=== PATIENT | male | born 1985 | race Caucasian/White ===

== ENCOUNTER 2016-03-28 13:35 | Emergency (ER) ==
[2016-03-28 14:00] VITALS: BP 124/85
== END 2016-03-28 15:38 | disposition left against medical advice (07) ==
LOC: ED 13:35
DX: R11.10 Vomiting, unspecified (principal); R19.7 Diarrhea, unspecified

== ENCOUNTER 2016-03-28 14:57 | Emergency (ER) ==
[2016-03-28 15:07] VITALS: BP 118/79
[2016-03-28] MEDS ORDERED: NS 1,000 ML IV ONE (16:03)
[2016-03-28] MEDS ORDERED: ZOFRAN IV ONE (16:03)
--- NOTE | 2016-03-28 16:05 | PROVIDER DOCUMENTATION ---
HPI-Abdominal Pain/GI Problem - General Source: patient, family - History of Present Illness-ABD Abdominal Pain Onset Location: reports: generalized abdomen Quality of Pain: reports: aching Severity in ED: reports: moderate Onset/Duration: reports: 5 days ago Timing: reports: constant Last BM: this evening Bruising or Bleeding Gums?: No Similar Symptoms Previously?: Yes Recently seen or treated by another doctor?: No <Cooper Geller - Last Filed: 03/28/16 16:44> <Pam Young - Last Filed: 03/28/16 19:25> - General Chief Complaint: N/V/D Stated Complaint: N/V/D Time Seen by Provider: 03/28/16 16:02 Allergies/Adverse Reactions: Patient Allergies Allergy/AdvReac Type Severity Reaction Status Date / Time No Known Allergies Allergy Verified 12/01/15 17:36 Home Medications: Paroxetine HCl [Paxil] 40 mg PO DAILY 03/03/13 - History of Present Illness-ABD Nature of Presenting Problems: Hx of anxiety,panic disorder,depression and ulcerative colitis presents to er with cc of n,v,d x 5 days. Vomiting 15-20 times a day and diarrhea 15-20 times a day. Reports occassional flare ups. Also reports fever and chills. (Cooper Geller) Review of Systems - Adult - REVIEW OF SYSTEMS - ADULT Constitutional: reports: chills, fever. denies: fatique, weight gain, weight loss Eyes: reports: no symptoms reported Ears, Nose, Mouth & Throat: reports: no symptoms reported Cardiovascular: denies: chest pain, irregular heart rate, orthopnea, syncope Respiratory: reports: no symptoms reported Gastrointestinal: reports: abdominal pain, diarrhea, nausea, poor appetite, vomiting. denies: difficulty swallowing, frequent heartburn, rectal bleeding Genitourinary: reports: no symptoms reported Musculoskeletal: reports: no symptoms reported Integumentary: reports: no symptoms reported Neurological: reports: no symptoms reported Psychiatric: reports: no symptoms reported Endocrine: reports: no symptoms reported Hematologic/Lymphatic: reports: no symptoms reported Allergic/Immunologic: reports: no symptoms reported All Other Systems: Reviewed and Negative <Cooper Geller - Last Filed: 03/28/16 16:44> Past History - Adult - PAST MEDICAL HISTORY-ADULT Review of Records: reports: Nursing Assessment Review Major Childhood Illnesses: reports: denies history, history unknown Cardiovascular: reports: denies history Respiratory: reports: denies history Gastrointestinal: reports: GERD, inflammatory bowel disease (ulcerative colitis - patient has never had bloody diarrhea, has never had colonoscopy/ diagnosis), other (h.pylori) Genitourinary: reports: denies history Psychiatric: reports: anxiety, depression, psychiatric problems Other Conditions: reports: denies history - PRIOR SURGERIES/PROCEDURES Surgical/Procedure History: reports: other (hip) - PRIOR HOSPITALIZATIONS Prior Hospitalizations: reports: none - IMMUNIZATION STATUS Childhood Immunizations: See Nurse Assessment Flu Vaccine: See Nurse Assessment - FAMILY HISTORY Family History: reviewed, not pertinent - SOCIAL HISTORY Smoking: cigarettes, greater than 1 pack/day Provider spent 3-5 mins advising pt. on dangers of tobacco.: Discussed manners to quit use, and f/u contacts for add'l counseling. Substance Use: none/never <Cooper Geller - Last Filed: 03/28/16 16:44> Physical Exam-General - PHYSICAL EXAM-ADULT Initial Vital Signs Reviewed: Yes - CONSTITUTIONAL General Appearance: alert, mild distress. negative: appears well - EYES Eyes: PERRL/EOMI, pink conjunctivae - HEAD, EARS, NOSE, MOUTH & THROAT HENMT: normal ENT inspection, TMs normal, pharynx normal. negative: moist mucous membranes (dry) - RESPIRATORY Respiratory: chest non-tender, lungs clear, normal breath sounds, no pleuratic chest pain, no respiratory distress, no accessory muscle use - CARDIOVASCULAR Cardiovascular: normal peripheral pulses, regular rate, rhythm, no edema, no gallop, no JVD, no murmur - GASTROINTESTINAL (ABDOMEN) Abdominal Exam: normal bowel sounds, soft, no organomegaly, no pulsatile mass, tenderness (general) - MUSCULOSKELETAL Back Exam: normal inspection Extremity: normal range of motion, non-tender - SKIN Integumentary: normal turgor, warm/dry, pallor - NEUROLOGIC Neurologic: access nurse II-XII nml as tested, grossly normal, no motor/sensory deficits - PSYCHIATRIC Psych/Mental Status: normal mood/affect, normal thought content, normal thought process, oriented x 3 <Cooper Geller - Last Filed: 03/28/16 16:44> Progress - XRAY 1 XRAY: Bilateral XRAY Study: Chest, Abdomen Impression: Normal XRAY Interpretation: nonspecific bowel gas pattern; paucity of bowel gas; chest nad <Cooper Geller - Last Filed: 03/28/16 16:44> <Pam Young - Last Filed: 03/28/16 19:25> - PLAN OF CARE/RESULTS Progress/Plan/Lab Results: Orders Category Date Time Status Saline Loc NOW Care 03/28/16 16:03 Active NPO Diet 03/28/16 15:08 Active FLAT/UPRIGHT ABD/1 VIEW CHEST [RAD] Stat Exams 03/28/16 15:08 Taken AMYLASE [CHEM] Stat Lab 03/28/16 15:08 Ordered CBC WITH ELECTRONIC DIFF [HEME] Stat Lab 03/28/16 15:08 Ordered COMPREHENSIVE METABOLIC PANEL [CHEM] Stat Lab 03/28/16 15:08 Ordered LIPASE [CHEM] Stat Lab 03/28/16 15:08 Ordered MAGNESIUM [CHEM] Stat Lab 03/28/16 16:03 Ordered UA [URINALYSIS PL] [URINALYSIS] Stat Lab 03/28/16 16:04 Ordered UDS [URINE DRUG SCREEN PL] Stat Lab 03/28/16 16:03 Uncollected 0.9% Sodium Chloride Inj [Ns] 1,000 ml Med 03/28/16 16:03 Active IV 999 mls/hr Ondansetron [Zofran] Med 03/28/16 16:03 Discontinued 8 mg IV NOW ONE Vital Signs - 24 hr 03/28/16 15:05 Temperature 97.9 F Pulse Rate 75 Respiratory 18 Rate Blood Pressure 118/79 O2 Sat by Pulse 100 Oximetry Laboratory Tests 03/28/16 16:05 WBC 15.03 H RBC 4.82 Hgb 15.0 Hct 43.2 MCV 89.6 MCH 31.1 H MCHC 34.7 RDW Std Deviation 13.0 Plt Count 298 MPV 10.1 Immature Gran % (Auto) 0.1 Neut % (Auto) 84.2 H Lymph % (Auto) 9.8 L [place] % (Auto) 4.9 Eos % (Auto) 0.9 Baso % (Auto) 0.1 Immature Gran # (Auto) 0.02 Neut # (Auto) 12.64 H Lymph # (Auto) 1.48 Coos # (Auto) 0.73 H Eos # (Auto) 0.14 Baso # (Auto) 0.02 (Cooper Geller) Orders Category Date Time Status Saline Loc NOW Care 03/28/16 16:03 Active NPO Diet 03/28/16 15:08 Active ABDOMEN/PELVIS W/CONTRAST [CT] Stat Exams 03/28/16 16:57 Ordered FLAT/UPRIGHT ABD/1 VIEW CHEST [RAD] Stat Exams 03/28/16 15:08 Completed AMYLASE [CHEM] Stat Lab 03/28/16 16:05 Completed CBC WITH ELECTRONIC DIFF [HEME] Stat Lab 03/28/16 16:05 Completed COMPREHENSIVE METABOLIC PANEL [CHEM] Stat Lab 03/28/16 16:05 Completed LIPASE [CHEM] Stat Lab 03/28/16 16:05 Completed MAGNESIUM [CHEM] Stat Lab 03/28/16 16:05 Completed UA [URINALYSIS PL] [URINALYSIS] Stat Lab 03/28/16 16:04 Ordered UDS [URINE DRUG SCREEN PL] Stat Lab 03/28/16 17:22 Ordered 0.9% Sodium Chloride Inj [Ns] 1,000 ml Med 03/28/16 16:03 Discontinued IV 999 mls/hr Hydrocodone/APAP 10 mg/325 mg [[place]-10] Med 03/28/16 17:57 Discontinued 1 each PO NOW ONE Lido/Newman Alk/Al&mg Hydrox [G.i. Cocktail] Med 03/28/16 17:57 Discontinued 30 ml PO NOW ONE Ondansetron [Zofran] Med 03/28/16 16:03 Discontinued 8 mg IV NOW ONE Laboratory Tests 03/28/16 03/28/16 03/28/16 16:05 16:05 16:05 WBC 15.03 H RBC 4.82 Hgb 15.0 Hct 43.2 MCV 89.6 MCH 31.1 H MCHC 34.7 RDW Std Deviation 13.0 Plt Count 298 MPV 10.1 Immature Gran % (Auto) 0.1 Neut % (Auto) 84.2 H Lymph % (Auto) 9.8 L [place] % (Auto) 4.9 Eos % (Auto) 0.9 Baso % (Auto) 0.1 Immature Gran # (Auto) 0.02 Neut # (Auto) 12.64 H Lymph # (Auto) 1.48 Coos # (Auto) 0.73 H Eos # (Auto) 0.14 Baso # (Auto) 0.02 Sodium 137 Potassium 3.2 L Chloride 101 Carbon Dioxide 21 L Anion Gap 15 BUN 11 Creatinine 0.9 Estimated GFR/1.73 m2 > 60 BUN/Creatinine Ratio 12 Glucose 107 H Calculated Osmolality 274 Calcium 9.4 Magnesium 2.0 Total Bilirubin 0.50 AST 15 ALT 8 L Alkaline Phosphatase 47 Total Protein 7.5 Albumin 4.4 Globulin 3.0 Albumin/Globulin Ratio 1.0 Amylase 45 Lipase 23 Vital Signs - 24 hr 03/28/16 15:05 Temperature 97.9 F Pulse Rate 75 Respiratory 18 Rate Blood Pressure 118/79 O2 Sat by Pulse 100 Oximetry PT left AMA (Pam Young) Departure <Cooper Geller - Last Filed: 03/28/16 16:44> - Departure Time of Disposition Order: 19:23 Certified Medical Emergency: Emergent <Pam Young - Last Filed: 03/28/16 19:25> - Departure DIAGNOSIS: Gastroenteritis Disposition: AGAINST MEDICAL ADVICE 07 Condition: Good Additional Instructions: ED Follow Up Instructions: You have been treated by a care provider in the Emergency Department. These instructions are being provided to you so you can have an understanding of how to care for yourself upon discharge. Upon discharge from the Emergency Department, you are responsible for making arrangements for follow-up care by a physician of your choice. Take all prescribed medications as directed. Return to the Emergency Department immediately for any new or worsening symptoms. You may call the Physician Referral phone number at [phone] to obtain a list of Physicians who are taking new patients. Referrals: Kavita Quinonez MD [STAFF PHYSICIAN] - None,PCP [Primary Care Provider] - Forms: Return to School/Parent Work Attestation - Scribe Verification/Attestation Scribe:: Cooper Geller Acting as Scribe for:: Galindo Calvo Scribe documention review:: This chart was documented by a scribe and accurately reflects the service the provider performed and the decisions made by the provider. <Cooper Geller - Last Filed: 03/28/16 16:44> Physician Attestation
[2016-03-28 16:13] LABS: MANUAL DIFF NEEDED? NO
[2016-03-28 16:15] LABS: BASO% 0.1 % (0.0-0.8); EOS# 0.14 X1000 (0.0-0.7); EOS% 0.9 % (0.0-10.0); HEMATOCRIT 43.2 % (42.0-52.0); IMM GRAN# 0.02 X1000 (0.0-0.04); IMM GRAN% 0.1 % (0.0-0.5); LYMPH# 1.48 X1000 (1.2-3.4); LYMPH% 9.8 % (20.5-51.1); MCH 31.1 PG (27-31); MCHC 34.7 g/dL (33-37); MCV 89.6 FL (81-99); MONO# 0.73 X1000 (0.11-0.59); MONO% 4.9 % (1.7-9.3); MPV 10.1 FL (7.4-10.4); NEUT% 84.2 % (42.2-75.2); PLT 298 X1000 (130-400); RBC 4.82 XMIL (4.7-6.1)
--- NOTE | 2016-03-28 16:15 | Diag Imaging Result Document ---
PROCEDURE NAME: FLAT/UPRIGHT ABD/1 VIEW CHEST - 03/28/2016 ACUTE ABDOMINAL SERIES: INDICATION: Abdomen pain. FINDINGS: Supine and erect views of the abdomen reveal a paucity of bowel gas rendering interpretation of obstruction suboptimal. There is no organomegaly or mass effect. No free air beneath the hemidiaphragm. No pulmonary infiltrates. IMPRESSION: Nonspecific bowel gas pattern. Paucity of bowel gas.
[2016-03-28 16:58] LABS: AGAP 15; ALBUMIN 4.4 g/dL (3.5-5.0); ALKALINE PHOSPHATASE 47 U/L (32-122); AMYLASE 45 U/L (20-200); BUN 11 mg/dL (8-22); CALCIUM 9.4 mg/dL (8.8-10.2); CHLORIDE 101 mmol/L (98-107); COSMO 274; GOT 15 U/L (10-34); GPT 8 U/L (10-44); LIPASE 23 U/L (13-60); POTASSIUM 3.2 mmol/L (3.5-5.1); SODIUM 137 mmol/L (136-145); TCO2 21 mmol/L (25-35); TOTAL PROTEIN 7.5 g/dL (6.3-8.3)
[2016-03-28] MEDS ORDERED: NORCO-10 PO ONE (17:57)
[2016-03-28] MEDS ORDERED: G.I. COCKTAIL PO ONE (17:57)
== END 2016-03-28 19:13 | disposition left against medical advice (07) ==
LOC: P.ED 14:57
DX: K52.9 Noninfective gastroenteritis and colitis, unspecified (principal); R10.84 Generalized abdominal pain; R11.2 Nausea with vomiting, unspecified; R19.7 Diarrhea, unspecified; R50.9 Fever, unspecified; R10.817 Generalized abdominal tenderness; R23.1 Pallor; F41.9 Anxiety disorder, unspecified; F32.9 Major depressive disorder, single episode, unspecified; F17.210 Nicotine dependence, cigarettes, uncomplicated; Z79.899 Other long term (current) drug therapy; Z71.6 Tobacco abuse counseling
CPT/HCPCS: 74022; 80053; 82150; 83690; 83735; 85025; 96361; 96374; J2405; J7030